=== PATIENT | female | born 2005 | race African-American/Black ===

== ENCOUNTER 2025-03-18 20:41 | Emergency (ER) | payer SELFPAY ==
[~2025-03-18] VITALS: Ht 172.7 cm; Wt 59.0 kg
[2025-03-18 20:51] VITALS: BP 152/82; PULSE 75; RESP 16; TEMP 36.8; O2SAT 98
[2025-03-18] MEDS ORDERED: MORPHINE SULFATE 4 MG/ML INJ (FOR IV/IM USE) IV ONE (21:15)
[2025-03-18] MEDS ORDERED: SODIUM CHLORIDE 0.9% 1,000 ML IV ONE (21:15)
[2025-03-18] MEDS ORDERED: PANTOPRAZOLE SODIUM 40 MG/VIAL IV ONE (21:15)
[2025-03-18] MEDS ORDERED: ONDANSETRON HCL 4MG/2ML INJ IV ONE (21:15)
== END 2025-03-18 22:20 | disposition left against medical advice (07) ==
LOC: ER 20:41
DX: R10.2 Pelvic and perineal pain (principal); N94.6 Dysmenorrhea, unspecified
CPT/HCPCS: 99283; J7030